=== PATIENT | male | born 1980 | race Caucasian/White ===

== ENCOUNTER → 2022-12-05 08:47 | Outpatient (BNVA) | payer MEDICARE, SELFPAY | PROVIDERS: Visit Provider Student in an Organized Health Care Education/Training Program | DX: L40.50 Arthropathic psoriasis, unspecified (principal) | CPT/HCPCS: 99202 ==

== ENCOUNTER 2022-12-05 10:09 | Outpatient (REF) | payer BC, SELFPAY ==
[2022-12-05 10:45] LABS: MANUAL DIFF FLAG NO
[2022-12-05 10:55] LABS: Basophils Absolute Auto 0.1 X10*3/uL (0.0-0.2); Basophils Percent Auto 1.2 % (0-2); Eosinophils Absolute Auto 0.1 X10*3/uL (0.0-0.4); Eosinophils Percent Auto 2.2 % (0-4); Hematocrit 45.4 % (42.0-52.0); Hemoglobin 15.6 g/dl (14.0-18.0); Imm Gran Abs Auto 0.02 X10*3/uL (0.00-0.03); Imm Gran Pct Auto 0.3 % (0.0-0.4); Lymphocytes Absolute Auto 2.6 X10*3/uL (1.2-4.9); Lymphocytes Percent Auto 40.6 % (20-40); Mean Corpuscular HGB Conc 34.4 g/dl (31.0-36.0); Mean Corpuscular Hemoglobin 29.4 pg (27.0-33.0); Mean Corpuscular Volume 85.7 fL (80.0-98.0); Mean Platelet Volume 8.9 fL (9.4-12.4); Monocytes Absolute Auto 0.6 X10*3/uL (0.1-1.2); Monocytes Percent Auto 8.9 % (2-11); Neutrophils Percent Auto 46.8 % (45-73); Platelet Count 262 X10*3/uL (160-400); Red Cell Distribution Width 12.5 % (11.0-16.0); White Blood Count 6.4 X10*3/uL (4.8-10.8)
[2022-12-05 11:15] LABS: Alanine Aminotransferase 35 U/L (0-40); Albumin Level 4.3 g/dL (3.5-5.0); Alkaline Phosphatase 49 U/L (39-117); Anion Gap 11 (12-20); Aspartate Amino Transferase 24 U/L (5-37); Bilirubin Total 0.6 mg/dL (0.0-1.0); Blood Urea Nitrogen 17 mg/dL (9-16); C Reactive Protein 0.26 mg/dL (< or = 0.50); Calcium 9.8 mg/dL (8.4-10.2); Carbon Dioxide 30 mmol/L (22-29); Chloride 102 mmol/L (96-108); Estimated Glomerular Filt Rate > 60; Glucose Random 97 mg/dL (60-115); Potassium 3.7 mmol/L (3.3-5.1); Sodium 139 mmol/L (135-145)
[2022-12-05 11:43] LABS: Erythrocyte Sedimentation Rate 9 MM/HR (0-15)
== END 2022-12-05 10:10 | disposition home or self-care (01) ==
LOC: HO.10HDL 10:09
PROVIDERS: Visit Provider Student in an Organized Health Care Education/Training Program
DX: Z51.81 Encounter for therapeutic drug level monitoring (principal); Z79.631 Long term (current) use of antimetabolite agent
CPT/HCPCS: 36415; 80053; 85025; 85652; 86140

== ENCOUNTER 2023-05-15 14:08 | Outpatient (AMB) | payer MEDICARE, SELFPAY ==
[2023-05-15 14:11] VITALS: BP 116/78; PULSE 70; TEMP 36.4; O2SAT 96; BMI 30.9
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
== END 2023-05-15 15:04 | disposition home or self-care (01) ==
PROVIDERS: PCP Nurse Practitioner Family; Visit Provider Student in an Organized Health Care Education/Training Program
DX: L40.50 Arthropathic psoriasis, unspecified (principal); L40.9 Psoriasis, unspecified; Z79.631 Long term (current) use of antimetabolite agent
CPT/HCPCS: 99214

== ENCOUNTER 2023-05-15 14:08 | Outpatient (REF) | payer BC, SELFPAY ==
[2023-05-15 15:11] LABS: MANUAL DIFF FLAG NO
[2023-05-15 15:44] LABS: Basophils Absolute Auto 0.1 X10*3/uL (0.0-0.2); Basophils Percent Auto 1.4 % (0-2); Eosinophils Absolute Auto 0.3 X10*3/uL (0.0-0.4); Eosinophils Percent Auto 3.8 % (0-4); Hematocrit 46.1 % (42.0-52.0); Hemoglobin 15.7 g/dl (14.0-18.0); Imm Gran Abs Auto 0.02 X10*3/uL (0.00-0.03); Imm Gran Pct Auto 0.3 % (0.0-0.4); Lymphocytes Absolute Auto 2.7 X10*3/uL (1.2-4.9); Lymphocytes Percent Auto 33.8 % (20-40); Mean Corpuscular HGB Conc 34.1 g/dl (31.0-36.0); Mean Corpuscular Hemoglobin 29.5 pg (27.0-33.0); Mean Corpuscular Volume 86.7 fL (80.0-98.0); Mean Platelet Volume 9.3 fL (9.4-12.4); Monocytes Absolute Auto 0.8 X10*3/uL (0.1-1.2); Monocytes Percent Auto 9.6 % (2-11); Neutrophils Percent Auto 51.1 % (45-73); Platelet Count 274 X10*3/uL (160-400); Red Blood Count 5.32 X10*6/uL (4.60-5.80); White Blood Count 7.8 X10*3/uL (4.8-10.8)
[2023-05-15 16:22] LABS: Alanine Aminotransferase 32 U/L (0-40); Albumin Level 4.3 g/dL (3.5-5.0); Alkaline Phosphatase 50 U/L (39-117); Anion Gap 14 (12-20); Aspartate Amino Transferase 21 U/L (5-37); Bilirubin Total 0.4 mg/dL (0.0-1.0); Blood Urea Nitrogen 18 mg/dL (9-16); C Reactive Protein 0.33 mg/dL (< or = 0.50); Calcium 9.8 mg/dL (8.4-10.2); Carbon Dioxide 28 mmol/L (22-29); Chloride 101 mmol/L (96-108); Estimated Glomerular Filt Rate > 60; Glucose Random 93 mg/dL (60-115); Potassium 3.6 mmol/L (3.3-5.1); Sodium 139 mmol/L (135-145); Total Protein 7.6 g/dL (6.5-8.0)
[2023-05-15 16:25] LABS: Erythrocyte Sedimentation Rate 8 MM/HR (0-15)
[2023-05-16 04:36] LABS: HBS Num1 236.22 mIU/mL (0-7.99); HBsAGNum1 0.29 S/CO (0.00-0.99); Hepatitis A Antibody IgM 0.18 Index (0-0.79); Hepatitis B Core Antibody Nonreactive (Nonreactive); Hepatitis B Surface Antigen Negative (Negative); ~HepC Num1 0.07 S/CO (0.00-0.79); ~Hepatitis A Antibody IgM Nonreactive (Nonreactive); ~Hepatitis B Surface Antibody REACTIVE (Nonreactive); ~Hepatitis C Antibody Nonreactive (Nonreactive)
[2023-05-28 07:22] LABS: TS Negative Control Passed; TS Panel A 1; TS Panel B 1; TS Positive Control Passed; TSpotTB Negative (NEGATIVE)
== END 2023-05-15 14:09 | disposition home or self-care (01) ==
LOC: HO.LAB 14:08
PROVIDERS: PCP Nurse Practitioner Family; Visit Provider Student in an Organized Health Care Education/Training Program
DX: Z11.7 Encounter for testing for latent tuberculosis infection (principal); Z11.59 Encounter for screening for other viral diseases; Z72.89 Other problems related to lifestyle; L40.50 Arthropathic psoriasis, unspecified; Z79.631 Long term (current) use of antimetabolite agent
CPT/HCPCS: 36415; 80053; 85025; 85652; 86140; 86481; 86704; 86706; 86709; 86803; 87340; 99212

== ENCOUNTER 2023-08-14 08:21 | Outpatient (REF) | payer BC, SELFPAY ==
[2023-08-14 08:44] LABS: MANUAL DIFF FLAG NO
[2023-08-14 08:56] LABS: Basophils Absolute Auto 0.1 X10*3/uL (0.0-0.2); Basophils Percent Auto 1.1 % (0-2); Eosinophils Absolute Auto 0.2 X10*3/uL (0.0-0.4); Eosinophils Percent Auto 2.4 % (0-4); Hematocrit 45.8 % (42.0-52.0); Hemoglobin 15.5 g/dl (14.0-18.0); Imm Gran Abs Auto 0.01 X10*3/uL (0.00-0.03); Imm Gran Pct Auto 0.2 % (0.0-0.4); Lymphocytes Absolute Auto 2.2 X10*3/uL (1.2-4.9); Mean Corpuscular HGB Conc 33.8 g/dl (31.0-36.0); Mean Corpuscular Hemoglobin 29.7 pg (27.0-33.0); Mean Corpuscular Volume 87.7 fL (80.0-98.0); Monocytes Absolute Auto 0.5 X10*3/uL (0.1-1.2); Monocytes Percent Auto 7.7 % (2-11); Neutrophils Absolute Auto 3.4 x10*3/uL (2.0-8.3); Neutrophils Percent Auto 53.6 % (45-73); Platelet Count 223 X10*3/uL (160-400); Red Blood Count 5.22 X10*6/uL (4.60-5.80); White Blood Count 6.3 X10*3/uL (4.8-10.8)
[2023-08-14 09:28] LABS: Alanine Aminotransferase 31 U/L (0-40); Albumin Level 4.2 g/dL (3.5-5.0); Alkaline Phosphatase 50 U/L (39-117); Anion Gap 12 (12-20); Aspartate Amino Transferase 20 U/L (5-37); Bilirubin Total 0.5 mg/dL (0.0-1.0); Blood Urea Nitrogen 12 mg/dL (9-16); C Reactive Protein 0.33 mg/dL (< or = 0.50); Calcium 9.7 mg/dL (8.4-10.2); Carbon Dioxide 31 mmol/L (22-29); Chloride 105 mmol/L (96-108); Estimated Glomerular Filt Rate > 60; Glucose Random 121 mg/dL (60-115); Potassium 3.7 mmol/L (3.3-5.1); Sodium 144 mmol/L (135-145); Total Protein 7.4 g/dL (6.5-8.0)
[2023-08-14 09:35] LABS: Erythrocyte Sedimentation Rate 6 MM/HR (0-15)
== END 2023-08-14 08:22 | disposition home or self-care (01) ==
LOC: HO.LAB 08:21
PROVIDERS: PCP Nurse Practitioner Family; Visit Provider Student in an Organized Health Care Education/Training Program
DX: L40.50 Arthropathic psoriasis, unspecified (principal); L40.9 Psoriasis, unspecified; Z79.631 Long term (current) use of antimetabolite agent
CPT/HCPCS: 36415; 80053; 85025; 85652; 86140

== ENCOUNTER 2023-08-14 08:48 | Outpatient (AMB) | payer BC, SELFPAY ==
--- NOTE | 2023-08-14 08:56 | A.OFFVIS_ITS ---
Intake Vital Signs 08/14/23 09:01 Height 5 ft 10 in Weight 215 lb 9.793 oz BMI 30.9 BP 104/70 Blood Pressure Location Rt brachial Position Sitting Pulse 68 Pulse Source Pulse Oximeter Temp 97.6 F Temp Source Skin Pulse Oximetry (%) 97 Oxygen Delivery Method Room Air Intake Visit Reasons: PSA Intake Note: Patient presents today to follow up on PsA and to discuss switching from Enbrel to Humira. Sap Consultant Required: No Accompanied by: Self / Same As Patient Allergies latex Adverse Reaction (Unknown, Verified 08/14/23 08:56) Rash Medication List - Last Reconciled 08/14/23 by Briseyda Jacobo MD amoxicillin 2,000 mg orally before dental work; Enbrel (etanercept) 50 mg subcut QWEEK NS folic acid 1 mg PO DAILY hydrochlorothiazide 25 mg PO DAILY methotrexate sodium 15 mg (6 x 2.5 mg) PO QWEEK metoprolol succinate ER 25 mg PO DAILY simvastatin 20 mg PO BEDTIME HPI HPI Comments History of Present Illness Details This is a 43-year-old male with psoriasis and psoriatic arthritis presents for follow-up. States that he was using topical steroid cream regularly for 2 weeks for the psoriasis patches on his hands, which did help but the rash came back as soon as he stopped. He states that he was recently doing [place] shopping and was on his feet for long day and is now having back pain, left knee pain and mild left index pain and stiffness. He is on methotrexate 15 mg weekly, folic acid and Enbrel weekly Initial history: This is a 42-year-old male with a past medical history of psoriasis and psoriatic arthritis who presents as a new patient. 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 Patient stated that he was diagnosed with p soriasis since he was a kid. He was diagnosed with psoriatic arthritis in 2001. He was on multiple medicines including methotrexate, sulfasalazine, multiple doses and regimens of NSAIDs. Then he was planning on having children and he was switched to Enbrel in 2003. Per patient Enbrel was working very well for many years for his psoriasis and psoriatic arthritis until 2021 when his insurance was unable to cover his Enbrel anymore. Patient stalked of on Enbrel in 2021 and was using it every other week. When using it every other week he started developing worsening inflammatory arthritis and he was started on methotrexate 50 mg once weekly by Dr. Roche with improvement of his joint inflammation. Patient now has a new insurance and is using the patient assistance program. Enbrel was authorized by his manufacturing teacher and he just started taking it once weekly 2 weeks ago. States that he is doing well overall except for mild pain of his left index flexor and left little toe. Minimal psoriatic patches on his fingers. Denies history of uveitis. Never had colonoscopy. No known family history of autoimmune rheumatic disease. [facility] Medical History Psoriatic arthritis Primary fibromyalgia syndrome Inflammatory spondylopathy Psoriasis Hypertriglyceridemia Essential hypertension Surgical History Hx of LASIK Family History Mother Hypertension Father Hypertension Neurological disorder Social History Alcohol intake: current Alcohol intake frequency: holidays/special occasions only Alcohol type: beer Patient Tobacco Use Status: Never used Tobacco Current occupational status: employed Current occupation: [employer] [place] Reports back pain and Reports arthralgias Skin/Breast Reports rash Physical Exam Vital Signs: Last Vital Signs Temp 97.6 F 08/14/23 09:01 Pulse 68 08/14/23 09:01 BP 104/70 08/14/23 09:01 Pulse Ox 97 08/14/23 09:01 Oxygen Delivery Method Room Air 08/14/23 09:01 BMI result Body Mass Index 30.9 Const General: cooperative, healthy appearing and comfortable Nutritional Appearance: overweight Orientation/consciousness: patient oriented x3 Limitations: no limitations HEENT Head: Yes normocephalic and Yes atraumatic Mouth: moist mucous membranes Resp Effort & Inspection: normal respiratory effort and able to speak in complete sentences Auscultation: clear to auscultation bilaterally Cardio Rate: regular rate Rhythm: regular rhythm GI Inspection: No distended Palpation (GI): Soft to palpation and nontender Skin Other: Psoriasis patches on left ring finger Neuro General: patient oriented x3 Extrem Other: No active synovitis today Nail pitting Negative Jose's test bilaterally Negative straight leg raise test Assessment & Plan Assessment & Plan (1) Psoriatic arthritis: Comment: dx 2002 MTX,SSZ, multiple doses and regimens of NSAIDs which were partially effective. Then patient wanted to have children. Everything was DC & he was switched to Enbrel Enbrel since 2003 effective. cut back to every other since 2021 due to insurance issues, with resultant inflammatory arthritis flare MTX added in 2021 with better control of inflammatory arthritis. Enbrel restarted once weekly in 11/23 Code(s): L40.50 - Arthropathic psoriasis, unspecified Plan: This is a 43-year-old male with a past medical history of psoriasis and psoriatic arthritis who presents for follow-up. On Enbrel weekly and methotrexate 15 mg once weekly Psoriatic arthritis is well controlled overall however he is having few psoriasis patches. Patches improve with topical steroid cream however they recur as soon as he stops using it. We discussed switching Enbrel to Humira. Patient however just received a new with 3 month shipment of Enbrel. Will re-evaluate next visit and consider switching to Humira Continue methotrexate 15 mg weekly folic acid 1 mg daily Labs before next visit in 10 weeks (2) Psoriasis: Code(s): L40.9 - Psoriasis, unspecified Plan: As above (3) shelter methotrexate user: Code(s): Z79.631 - terminal operations supervisor (current) use of antimetabolite agent Plan: Monitor safety labs for methotrexate (4) Immunization counseling: Code(s): Z71.85 - Encounter for immunization safety counseling Plan: Patient received the flu vaccine for this season and new COVID booster Plan I spent 27 minutes reviewing patient's chart, evaluating patient, ordering diagnostic workup, counseling patient and documenting in the chart Orders: Orders C Reactive Protein 3 Months Z79.631 - terminal operations supervisor (current) use of antimetabolite agent Complete Blood Count Auto Diff 3 Months Z79.631 - terminal operations supervisor (current) use of antimetabolite agent Comprehensive Met. Panel 3 Months Z79.631 - shelter (current) use of antimetabolite agent Erythrocyte Sedimentation Rate 3 Months Z79.631 - shelter (current) use of antimetabolite agent Medications: Refilled methotrexate sodium 15 mg (6 x 2.5 mg) PO QWEEK 72 tabs 3RF folic acid 1 mg PO DAILY 90 tabs 1RF Coding Level of Care Code Est Pt Level 4 (67214) Diagnoses Psoriatic arthritis L40.50 Psoriasis L40.9 terminal operations supervisor methotrexate user Z79.631 Immunization counseling Z71.85
[2023-08-14 09:01] VITALS: BP 104/70; PULSE 68; TEMP 36.4; O2SAT 97; BMI 30.9
== END 2023-08-14 09:27 | disposition home or self-care (01) ==
PROVIDERS: PCP Nurse Practitioner Family; Visit Provider Student in an Organized Health Care Education/Training Program
DX: L40.50 Arthropathic psoriasis, unspecified (principal); L40.9 Psoriasis, unspecified; Z79.631 Long term (current) use of antimetabolite agent; Z71.85 Encounter for immunization safety counseling
CPT/HCPCS: 99214

== ENCOUNTER 2023-10-24 10:43 | Outpatient (REF) | payer BC, SELFPAY ==
[2023-10-24 11:07] LABS: MANUAL DIFF FLAG NO
[2023-10-24 11:58] LABS: Basophils Absolute Auto 0.1 X10*3/uL (0.0-0.2); Basophils Percent Auto 1.1 % (0-2); Eosinophils Absolute Auto 0.1 X10*3/uL (0.0-0.4); Eosinophils Percent Auto 2.1 % (0-4); Hematocrit 46.4 % (42.0-52.0); Hemoglobin 15.9 g/dl (14.0-18.0); Imm Gran Abs Auto 0.02 X10*3/uL (0.00-0.03); Imm Gran Pct Auto 0.3 % (0.0-0.4); Lymphocytes Absolute Auto 2.4 X10*3/uL (1.2-4.9); Lymphocytes Percent Auto 38.4 % (20-40); Mean Corpuscular HGB Conc 34.3 g/dl (31.0-36.0); Mean Corpuscular Hemoglobin 29.7 pg (27.0-33.0); Mean Corpuscular Volume 86.6 fL (80.0-98.0); Mean Platelet Volume 9.3 fL (9.4-12.4); Monocytes Absolute Auto 0.5 X10*3/uL (0.1-1.2); Monocytes Percent Auto 8.6 % (2-11); Neutrophils Absolute Auto 3.1 x10*3/uL (2.0-8.3); Neutrophils Percent Auto 49.5 % (45-73); Platelet Count 272 X10*3/uL (160-400); Red Blood Count 5.36 X10*6/uL (4.60-5.80); Red Cell Distribution Width 13.1 % (11.0-16.0); White Blood Count 6.3 X10*3/uL (4.8-10.8)
[2023-10-24 12:29] LABS: Alanine Aminotransferase 39 U/L (0-40); Albumin Level 4.3 g/dL (3.5-5.0); Alkaline Phosphatase 53 U/L (39-117); Anion Gap 13 (12-20); Aspartate Amino Transferase 26 U/L (5-37); Bilirubin Total 0.5 mg/dL (0.0-1.0); Blood Urea Nitrogen 15 mg/dL (9-16); C Reactive Protein 0.33 mg/dL (< or = 0.50); Calcium 9.6 mg/dL (8.4-10.2); Carbon Dioxide 30 mmol/L (22-29); Chloride 103 mmol/L (96-108); Estimated Glomerular Filt Rate > 60; Glucose Random 92 mg/dL (60-115); Potassium 3.9 mmol/L (3.3-5.1); Sodium 142 mmol/L (135-145); Total Protein 7.7 g/dL (6.5-8.0)
[2023-10-24 12:47] LABS: Erythrocyte Sedimentation Rate 7 MM/HR (0-15)
== END 2023-10-24 10:44 | disposition home or self-care (01) ==
LOC: HO.LAB 10:43
PROVIDERS: PCP Nurse Practitioner Family; Visit Provider Student in an Organized Health Care Education/Training Program
DX: Z51.81 Encounter for therapeutic drug level monitoring (principal); Z79.631 Long term (current) use of antimetabolite agent
CPT/HCPCS: 36415; 80053; 85025; 85652; 86140

== ENCOUNTER 2023-10-25 09:44 | Outpatient (AMB) | payer BC, SELFPAY ==
[2023-10-25 09:48] VITALS: BP 128/74; PULSE 59; TEMP 36.1; O2SAT 97; BMI 31.0
--- NOTE | 2023-10-25 09:48 | MHC.OFFVIS ---
Intake Vital Signs 10/25/23 09:48 Height 5 ft 10 in Weight 216 lb 0.848 oz BMI 31.0 BP 128/74 Blood Pressure Location Rt brachial Position Sitting Pulse 59 Pulse Source Pulse Oximeter Temp 96.9 F Temp Source Skin Pulse Oximetry (%) 97 Oxygen Delivery Method Room Air Intake Visit Reasons: PSA Intake Note: Patient last seen 08/14/23 presents today for follow up and test results. Stem Crusher Required: No Accompanied by: Self / Same As Patient Allergies latex Adverse Reaction (Unknown, Verified 10/25/23 09:50) Rash Medication List - Last Reconciled 10/25/23 by Briseyda Jacobo MD amoxicillin 2,000 mg orally before dental work; folic acid 1 mg PO DAILY hydrochlorothiazide 25 mg PO DAILY methotrexate sodium 15 mg (6 x 2.5 mg) PO QWEEK metoprolol succinate ER 25 mg PO DAILY simvastatin 20 mg PO BEDTIME HPI HPI Comments History of Present Illness Details This is a 43-year-old male with psoriasis and psoriatic arthritis presents for follow-up. He is on methotrexate 15 mg weekly, folic acid and Enbrel weekly. Doing about the same overall. Continues to have psoriasis patches on his fingers genital region, penile shaft and scrotum. States that recently has been having some stiffness of his left index PIP and some back pain after a long day of walking at [place]. Initial history: This is a 42-year-old male with a past medical history of psoriasis and psoriatic arthritis who presents as a new patient. His previous primary care md left the practice. Patient stated that he was diagnosed with psoriasis since he was a kid. He was diagnosed with psoriatic arthritis in 2001. He was on multiple medicines including methotrexate, sulfasalazine, multiple doses and regimens of NSAIDs. Then he was planning on having children and he was switched to Enbrel in 2003. Per patient Enbrel was working very well for many years for his psoriasis and psoriatic arthritis until 2021 when his insurance was unable to cover his Enbrel anymore. Patient stalked of on Enbrel in 2021 and was using it every other week. When using it every other week he started developing worsening inflammatory arthritis and he was started on methotrexate 50 mg once weekly by Dr. Roche with improvement of his joint inflammation. Patient now has a new insurance and is using the patient assistance program. Enbrel was authorized by his principal technical writer and he just started taking it once weekly 2 weeks ago. States that he is doing well overall except for mild pain of his left index flexor and left little toe. Minimal psoriatic patches on his fingers. Denies history of uveitis. Never had colonoscopy. No known family history of autoimmune rheumatic disease. [facility] Medical History Psoriatic arthritis Primary fibromyalgia syndrome Inflammatory spondylopathy Psoriasis Hypertriglyceridemia Essential hypertension Surgical History Hx of LASIK Family History Mother Hypertension Father Hypertension Neurological disorder Social History Alcohol intake: current Alcohol intake frequency: holidays/special occasions only Alcohol type: beer Patient Tobacco Use Status: Never used Tobacco Current occupational status: employed Current occupation: [employer] Systems [place] Reports back pain and Reports arthralgias Skin/Breast Reports rash Physical Exam Vital Signs: Last Vital Signs Temp 96.9 F 10/25/23 09:48 Pulse 59 10/25/23 09:48 BP 128/74 10/25/23 09:48 Pulse Ox 97 10/25/23 09:48 Oxygen Delivery Method Room Air 10/25/23 09:48 BMI result Body Mass Index 31.0 Const General: cooperative, healthy appearing and comfortable Nutritional Appearance: overweight Orientation/consciousness: patient oriented x3 Limitations: no limitations HEENT Head: Yes normocephalic and Yes atraumatic Mouth: moist mucous membranes Resp Effort & Inspection: normal respiratory effort and able to speak in complete sentences Auscultation: clear to auscultation bilaterally Cardio Rate: regular rate Rhythm: regular rhythm GI Inspection: No distended Palpation (GI): Soft to palpation and nontender Skin Other: Psoriasis patches on left index, left thumb. Neuro General: patient oriented x3 Extrem Other: No active synovitis today Nail pitting Negative Jose's test bilaterally Negative straight leg raise test Assessment & Plan Assessment & Plan (1) Psoriatic arthritis: Comment: dx 2001 MTX,SSZ, multiple doses and regimens of NSAIDs which were partially effective. Then patient wanted to have children. Everything was DC & he was switched to Enbrel Enbrel since 2003 effective. cut back to every other since 2021 due to insurance issues, with resultant inflammatory arthritis flare MTX added in 2021 with better control of inflammatory arthritis. Enbrel restarted once weekly in 11/23 Code(s): L40.50 - Arthropathic psoriasis, unspecified Plan: This is a 43-year-old male with a past medical history of psoriasis and psoriatic arthritis who presents for follow-up. On Enbrel weekly and methotrexate 15 mg once weekly Psoriatic arthritis is well controlled. He is having some joint pain that is likely mechanical and degenerative in nature. Patient however continues to have active psoriasis despite methotrexate, Enbrel and regular use of topical steroid creams. Discussed switching to adalimumab. Patient agreed to proceed Continue methotrexate 15 mg weekly folic acid 1 mg daily Labs before next visit in 4 months (2) Psoriasis: Code(s): L40.9 - Psoriasis, unspecified Plan: As mentioned above. Psoriasis is not well controlled on Enbrel, 15 mg of methotrexate as well as regular use of topical creams. Discussed switching DMARDs from Enbrel to Humira. Patient agreed to proceed. Will start prior authorization for Humira (3) care home methotrexate user: Code(s): Z79.631 - intermodal customer service (current) use of antimetabolite agent Plan: Monitor safety labs for methotrexate (4) Immunization counseling: Code(s): Z71.85 - Encounter for immunization safety counseling Plan: Patient received the flu vaccine for this season and new COVID booster Plan I spent 27 minutes reviewing patient's chart, evaluating patient, ordering diagnostic workup, counseling patient and documenting in the chart Orders: Orders Complete Blood Count Auto Diff 4 Months L40.50 - Arthropathic psoriasis, unspecified, Z79.631 - care home (current) use of antimetabolite agent Comprehensive Met. Panel 4 Months L40.50 - Arthropathic psoriasis, unspecified, Z79.631 - care home (current) use of antimetabolite agent C Reactive Protein 4 Months L40.50 - Arthropathic psoriasis, unspecified, Z79.631 - care home (current) use of antimetabolite agent Erythrocyte Sedimentation Rate 4 Months L40.50 - Arthropathic psoriasis, unspecified, Z79.631 - care home (current) use of antimetabolite agent Coding Level of Care Code Est Pt Level 4 (01733) Diagnoses Psoriatic arthritis L40.50 Psoriasis L40.9 intermodal customer service methotrexate user Z79.631 Immunization counseling Z71.85
== END 2023-10-25 10:07 | disposition home or self-care (01) ==
PROVIDERS: PCP Nurse Practitioner Family; Visit Provider Student in an Organized Health Care Education/Training Program
DX: L40.50 Arthropathic psoriasis, unspecified (principal); L40.9 Psoriasis, unspecified; Z79.631 Long term (current) use of antimetabolite agent; Z71.85 Encounter for immunization safety counseling
CPT/HCPCS: 99214

== ENCOUNTER → 2023-10-25 09:44 | Outpatient (BNVA) | payer BC, SELFPAY | PROVIDERS: PCP Nurse Practitioner Family; Visit Provider Student in an Organized Health Care Education/Training Program ==

== ENCOUNTER 2024-03-11 14:07 | Outpatient (REF) | payer BC, SELFPAY ==
[2024-03-11 14:20] LABS: MANUAL DIFF FLAG NO
[2024-03-11 14:47] LABS: Basophils Absolute Auto 0.1 X10*3/uL (0.0-0.2); Basophils Percent Auto 1.6 % (0-2); Eosinophils Absolute Auto 0.2 X10*3/uL (0.0-0.4); Eosinophils Percent Auto 3.5 % (0-4); Hematocrit 45.4 % (42.0-52.0); Hemoglobin 15.6 g/dl (14.0-18.0); Imm Gran Abs Auto 0.01 X10*3/uL (0.00-0.03); Imm Gran Pct Auto 0.2 % (0.0-0.4); Lymphocytes Absolute Auto 2.4 X10*3/uL (1.2-4.9); Lymphocytes Percent Auto 37.1 % (20-40); Mean Corpuscular HGB Conc 34.4 g/dl (31.0-36.0); Mean Corpuscular Hemoglobin 29.8 pg (27.0-33.0); Mean Corpuscular Volume 86.6 fL (80.0-98.0); Mean Platelet Volume 9.5 fL (9.4-12.4); Monocytes Absolute Auto 0.5 X10*3/uL (0.1-1.2); Monocytes Percent Auto 8.4 % (2-11); Neutrophils Absolute Auto 3.1 x10*3/uL (2.0-8.3); Neutrophils Percent Auto 49.2 % (45-73); Platelet Count 246 X10*3/uL (160-400); Red Blood Count 5.24 X10*6/uL (4.60-5.80); Red Cell Distribution Width 13.1 % (11.0-16.0); White Blood Count 6.3 X10*3/uL (4.8-10.8)
[2024-03-11 15:25] LABS: Alanine Aminotransferase 29 U/L (0-40); Albumin Level 4.3 g/dL (3.5-5.0); Alkaline Phosphatase 59 U/L (39-117); Anion Gap 13 (12-20); Aspartate Amino Transferase 19 U/L (5-37); Bilirubin Total 0.5 mg/dL (0.0-1.0); Blood Urea Nitrogen 12 mg/dL (9-16); C Reactive Protein 0.73 mg/dL (< or = 0.50); Calcium 9.9 mg/dL (8.4-10.2); Carbon Dioxide 30 mmol/L (22-29); Chloride 105 mmol/L (96-108); Erythrocyte Sedimentation Rate 10 MM/HR (0-15); Estimated Glomerular Filt Rate > 60; Glucose Random 88 mg/dL (60-115); Sodium 144 mmol/L (135-145); Total Protein 7.6 g/dL (6.5-8.0)
== END 2024-03-11 14:08 | disposition home or self-care (01) ==
LOC: HO.LAB 14:07
PROVIDERS: PCP Nurse Practitioner Family; Visit Provider Student in an Organized Health Care Education/Training Program
DX: L40.50 Arthropathic psoriasis, unspecified (principal); Z79.631 Long term (current) use of antimetabolite agent
CPT/HCPCS: 36415; 80053; 85025; 85652; 86140

== ENCOUNTER 2024-03-11 14:21 | Outpatient (AMB) | payer BC, SELFPAY ==
--- NOTE | 2024-03-11 14:28 | A.OFFVIS_ITS ---
Vital Signs 03/11/24 14:33 Height 5 ft 10 in Weight 224 lb 10.417 oz BMI 32.2 BP 122/80 Blood Pressure Location Rt brachial Position Sitting Pulse 76 Pulse Source Pulse Oximeter Pulse Oximetry (%) 98 Oxygen Delivery Method Room Air Intake Visit Reasons: PsA/CM Intake Note: Patient presents for PsA. Allergies latex Adverse Reaction (Unknown, Verified 03/11/24 14:31) Rash Medication List - Last Reconciled 03/11/24 by Briseyda Jacobo MD amoxicillin 2,000 mg (4 x 500 mg) PO ONCE PRN folic acid 1 mg PO DAILY Humira(CF) Pen (adalimumab) inject one - 40 mg/0.4 mL pen every 2 weeks subcut NS hydrochlorothiazide 25 mg PO DAILY methotrexate sodium 15 mg (6 x 2.5 mg) PO QWEEK simvastatin 20 mg PO BEDTIME HPI Comments Details: This is a 43-year-old male with psoriasis and psoriatic arthritis presents for follow-up. He is on methotrexate 15 mg weekly, folic acid 1 mg daily. Last visit we switched his Enbrel to Humira. He states that he continues to have intermittent joint pain usually left knee, left big toe, usually worse with activity. States that the psoriasis patch on his right knee has significantly improved but continues to have pain psoriasis patches on his penile shaft and scrotum. Ulcers on his hands and fingers are much improved. He has noticed a lump on the left axillary area. Initial history: This is a 42-year-old male with a past medical history of psoriasis and psoriatic arthritis who presents as a new patient. His previous window framer left the practice. Patient stated that he was diagnosed with psoriasis since he was a kid. He was diagnosed with psoriatic arthritis in 2001. He was on multiple medicines including methotrexate, sulfasalazine, multiple doses and regimens of NSAIDs. Then he was planning on having children and he was switched to Enbrel in 2003. Per patient Enbrel was working very well for many years for his psoriasis and psoriatic arthritis until 2021 when his insurance was unable to cover his Enbrel anymore. Patient stalked of on Enbrel in 2021 and was using it every other week. When using it every other week he started developing worsening inflammatory arthritis and he was started on methotrexate 50 mg once weekly by Dr. Roche with improvement of his joint inflammation. Patient now has a new insurance and is using the patient assistance program. Enbrel was authorized by his account manager b2b and he just started taking it once weekly 2 weeks ago. States that he is doing well overall except for mild pain of his left index flexor and left little toe. Minimal psoriatic patches on his fingers. Denies history of uveitis. Never had colonoscopy. No known family history of autoimmune rheumatic disease. [facility] Medical History Psoriatic arthritis Primary fibromyalgia syndrome Inflammatory spondylopathy Psoriasis Hypertriglyceridemia Essential hypertension Surgical History Hx of LASIK Family History Mother Hypertension Father Hypertension Neurological disorder Social History Alcohol intake: current Alcohol intake frequency: holidays/special occasions only Alcohol type: beer Patient Tobacco Use Status: Never used Tobacco Current occupational status: employed Current occupation: [employer] Review of Systems Musc Reports arthralgias Skin/Breast Reports rash Physical Exam Vital Signs: Last Vital Signs Pulse 76 03/11/24 14:33 BP 122/80 03/11/24 14:33 Pulse Ox 98 03/11/24 14:33 Oxygen Delivery Method Room Air 03/11/24 14:33 BMI result Body Mass Index 32.2 Const General: cooperative, healthy appearing and comfortable Nutritional Appearance: overweight Orientation/consciousness: patient oriented x3 Limitations: no limitations HEENT Head: Yes normocephalic and Yes atraumatic Mouth: moist mucous membranes Resp Effort & Inspection: normal respiratory effort and able to speak in complete sentences Auscultation: clear to auscultation bilaterally Cardio Rate: regular rate Rhythm: regular rhythm GI Inspection: No distended Palpation (GI): Soft to palpation and nontender Skin Other: Very faint psoriasis patches on penile shaft and very subtle patches on scrotum Pea sized lump on the left axillary area, likely hidradenitis suppurativa Neuro General: patient oriented x3 Extrem Other: No active synovitis today Left knee pain with full flexion Nail pitting Negative Jose's test bilaterally Negative straight leg raise test Assessment & Plan Assessment & Plan (1) Psoriatic arthritis: Comment: dx 2002 MTX,SSZ, multiple doses and regimens of NSAIDs which were partially effective. Then patient wanted to have children. Everything was DC & he was switched to Enbrel Enbrel since 2003 effective. cut back to every other since 2021 due to insurance issues, with resultant inflammatory arthritis flare MTX added in 2021 with better control of inflammatory arthritis. Enbrel restarted once weekly in 11/23 DC 01/2024 d.t. ongoing psoriasis Humira 01/2024 Code(s): L40.50 - Arthropathic psoriasis, unspecified Category: Medical Plan: This is a 43-year-old male with a past medical history of psoriasis and psoriatic arthritis who presents for follow-up. Last visit Enbrel was DC and Humira was started. There is mild improvement in his psoriasis. There is no active synovitis Continue Humira 40 mg every other week Continue methotrexate 15 mg weekly plus folic acid 1 mg daily Labs in 3 months and in 6 months before next visit (2) Psoriasis: Code(s): L40.9 - Psoriasis, unspecified Category: Medical Plan: Slightly improved with Humira. Continues to have subtle patches on scrotum and penile shaft, psoriasis rashes on significantly improved Pea-sized lump left axillary area, likely hidradenitis suppurativa. Advised patient to use a non antiperspirant body spray. Once the area. 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
[2024-03-11 14:33] VITALS: BP 122/80; PULSE 76; O2SAT 98; BMI 32.2
== END 2024-03-11 15:28 | disposition home or self-care (01) ==
PROVIDERS: PCP Nurse Practitioner Family; Visit Provider Student in an Organized Health Care Education/Training Program
DX: L40.50 Arthropathic psoriasis, unspecified (principal); L40.9 Psoriasis, unspecified; Z79.631 Long term (current) use of antimetabolite agent
CPT/HCPCS: 99214

== ENCOUNTER 2024-09-11 14:56 | Outpatient (REF) | payer BC, SELFPAY ==
[2024-09-11 15:14] LABS: MANUAL DIFF FLAG NO
[2024-09-11 15:33] LABS: Basophils Absolute Auto 0.1 X10*3/uL (0.0-0.2); Basophils Percent Auto 1.3 % (0-2); Eosinophils Absolute Auto 0.2 X10*3/uL (0.0-0.4); Eosinophils Percent Auto 3.1 % (0-4); Hematocrit 43.4 % (42.0-52.0); Hemoglobin 15.2 g/dl (14.0-18.0); Imm Gran Abs Auto 0.02 X10*3/uL (0.00-0.03); Imm Gran Pct Auto 0.3 % (0.0-0.4); Lymphocytes Absolute Auto 2.8 X10*3/uL (1.2-4.9); Lymphocytes Percent Auto 40.7 % (20-40); Mean Corpuscular Hemoglobin 30.2 pg (27.0-33.0); Mean Corpuscular Volume 86.3 fL (80.0-98.0); Mean Platelet Volume 9.3 fL (9.4-12.4); Monocytes Absolute Auto 0.7 X10*3/uL (0.1-1.2); Monocytes Percent Auto 10.2 % (2-11); Neutrophils Percent Auto 44.4 % (45-73); Platelet Count 223 X10*3/uL (160-400); Red Blood Count 5.03 X10*6/uL (4.60-5.80); White Blood Count 6.8 X10*3/uL (4.8-10.8)
[2024-09-11 16:14] LABS: Alanine Aminotransferase 39 U/L (0-40); Alkaline Phosphatase 54 U/L (39-117); Anion Gap 10 (12-20); Aspartate Amino Transferase 26 U/L (5-37); Bilirubin Total 0.4 mg/dL (0.0-1.0); Blood Urea Nitrogen 16 mg/dL (9-16); C Reactive Protein 0.33 mg/dL (< or = 0.50); Calcium 9.5 mg/dL (8.4-10.2); Carbon Dioxide 28 mmol/L (22-29); Chloride 108 mmol/L (96-108); Estimated Glomerular Filt Rate > 60; Glucose Random 96 mg/dL (60-115); Potassium 4.2 mmol/L (3.3-5.1); Sodium 142 mmol/L (135-145); Total Protein 7.2 g/dL (6.5-8.0)
[2024-09-11 17:05] LABS: Erythrocyte Sedimentation Rate 7 MM/HR (0-15)
== END 2024-09-11 14:57 | disposition home or self-care (01) ==
LOC: HO.LAB 14:56
PROVIDERS: PCP Nurse Practitioner Family; Visit Provider Student in an Organized Health Care Education/Training Program
DX: Z79.631 Long term (current) use of antimetabolite agent (principal)
CPT/HCPCS: 36415; 80053; 85025; 85652; 86140

== ENCOUNTER 2024-09-11 15:19 | Outpatient (AMB) | payer BC, SELFPAY ==
[2024-09-11 15:32] VITALS: BP 110/80; PULSE 56; BMI 34.0
--- NOTE | 2024-09-11 15:32 | MHC.OFFVIS ---
Vital Signs 09/11/24 15:32 Height 5 ft 10 in Weight 236 lb 12.423 oz BMI 34.0 BP 110/80 Blood Pressure Location Rt brachial Position Sitting Pulse 56 Pulse Source Pulse Oximeter Intake Visit Reasons: PsA Intake Note: Patient last seen by Doctor Briseyda Jacobo on 03/11/24. Presents today for PsA follow up and test results. Outboard Motor Assembler Required: No Accompanied by: Self / Same As Patient Allergies latex Adverse Reaction (Unknown, Verified 09/11/24 15:39) Rash Medication List - Last Reconciled 09/11/24 by Briseyda Jacobo MD folic acid 1 mg PO DAILY Humira(CF) Pen (adalimumab) inject one - 40 mg/0.4 mL pen every 2 weeks subcut NS methotrexate sodium 15 mg (6 x 2.5 mg) PO QWEEK simvastatin 20 mg PO BEDTIME HPI Comments Details: This is a 44-year-old male with psoriasis and psoriatic arthritis presents for follow-up. He is on methotrexate 15 mg weekly, folic acid 1 mg daily and Humira 40 mg every other week. He states that he has been doing about the same overall. Doing well overall. Continues to have subtle psoriasis patches on his elbows, fingers. Denies any joint pain swelling or stiffness Initial history: This is a 42-year-old male with a past medical history of psoriasis and psoriatic arthritis who presents as a new patient. His previous nurse paralegal left the practice. Patient stated that he was diagnosed with psoriasis since he was a kid. He was diagnosed with psoriatic arthritis in 2001. He was on multiple medicines including methotrexate, sulfasalazine, multiple doses and regimens of NSAIDs. Then he was planning on having children and he was switched to Enbrel in 2003. Per patient Enbrel was working very well for many years for his psoriasis and psoriatic arthritis until 2021 when his insurance was unable to cover his Enbrel anymore. Patient stalked of on Enbrel in 2021 and was using it every other week. When using it every other week he started developing worsening inflammatory arthritis and he was started on methotrexate 50 mg once weekly by Dr. Roche with improvement of his joint inflammation. Patient now has a new insurance and is using the patient assistance program. Enbrel was authorized by his dry heat cabinet attendant and he just started taking it once weekly 2 weeks ago. States that he is doing well overall except for mild pain of his left index flexor and left little toe. Minimal psoriatic patches on his fingers. Denies history of uveitis. Never had colonoscopy. No known family history of autoimmune rheumatic disease. [facility] Medical History Psoriatic arthritis Primary fibromyalgia syndrome Inflammatory spondylopathy Psoriasis Hypertriglyceridemia Essential hypertension Surgical History Hx of LASIK Family History Mother Hypertension Father Hypertension Neurological disorder Social History Alcohol intake: current Alcohol intake frequency: holidays/special occasions only Alcohol type: beer Patient Tobacco Use Status: Never used Tobacco Current occupational status: employed Current occupation: [employer] Review of Systems Musc Reports arthralgias Skin/Breast Reports rash Physical Exam Vital Signs: Last Vital Signs Pulse 56 09/11/24 15:32 BP 110/80 09/11/24 15:32 BMI result Body Mass Index 34.0 Const General: cooperative, healthy appearing and comfortable Nutritional Appearance: overweight Orientation/consciousness: patient oriented x3 Limitations: no limitations HEENT Head: Yes normocephalic and Yes atraumatic Mouth: moist mucous membranes Resp Effort & Inspection: normal respiratory effort and able to speak in complete sentences Auscultation: clear to auscultation bilaterally Cardio Rate: regular rate Rhythm: regular rhythm GI Inspection: No distended Palpation (GI): Soft to palpation and nontender Skin Other: Very minimal psoriasis patches on his right 3rd finger, both elbows and inside his left ear Neuro General: patient oriented x3 Extrem Other: No active synovitis today Left knee pain with full flexion Nail pitting Negative Jose's test bilaterally Negative straight leg raise test bilaterally Carola test 10-14.5 cm Assessment & Plan Assessment & Plan (1) Psoriatic arthritis: Comment: dx 2001 MTX,SSZ, multiple doses and regimens of NSAIDs which were partially effective. Then patient wanted to have children. Everything was DC & he was switched to Enbrel Enbrel since 2003 effective. cut back to every other since 2021 due to insurance issues, with resultant inflammatory arthritis flare MTX added in 2021 with better control of inflammatory arthritis. Enbrel restarted once weekly in 11/23 DC 01/2024 d.t. ongoing psoriasis Humira 01/2024 effective for psoriatic arthritis, similar for psoriasis Code(s): L40.50 - Arthropathic psoriasis, unspecified Category: Medical Plan: This is a 44-year-old male with a past medical history of psoriasis and psoriatic arthritis who presents for follow-up. On methotrexate 15 mg weekly, folic acid 1 mg daily and Humira 40 mg every other week. Doing well overall, no active synovitis on exam, continues to have very subtle psoriasis patches. Symptoms overall well controlled Continue Humira 40 mg every other week Continue methotrexate 15 mg weekly plus folic acid 1 mg daily Labs in 3 months and in 6 months before next visit (2) Psoriasis: Code(s): L40.9 - Psoriasis, unspecified Category: Medical Plan: Slightly improved with Humira. 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 Panel 12/10/24 L40.50 - Arthropathic psoriasis, unspecified, Z79.631 - petroleum terminal plant operator (current) use of antimetabolite agent C Reactive Protein 12/10/24 L40.50 - Arthropathic psoriasis, unspecified, Z79.631 - petroleum terminal plant operator (current) use of antimetabolite agent Erythrocyte Sedimentation Rate 03/10/25 L40.50 - Arthropathic psoriasis, unspecified, Z79.631 - alf (current) use of antimetabolite agent Medications: Refilled folic acid 1 mg PO DAILY 90 tabs 3RF Humira(CF) Pen (adalimumab) inject one - 40 mg/0.4 mL pen every 2 weeks subcut 2 ea 5RF NS methotrexate sodium 15 mg (6 x 2.5 mg) PO QWEEK 72 tabs 3RF Coding Level of Care Code Est Pt Level 4 (56939) Complex EM visit Add On G2211 Diagnoses Psoriatic arthritis L40.50 Psoriasis 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
== END 2024-09-11 16:09 | disposition home or self-care (01) ==
PROVIDERS: PCP Nurse Practitioner Family; Visit Provider Student in an Organized Health Care Education/Training Program
DX: L40.50 Arthropathic psoriasis, unspecified (principal); L40.9 Psoriasis, unspecified; Z79.631 Long term (current) use of antimetabolite agent
CPT/HCPCS: 99214

== ENCOUNTER 2025-03-17 15:28 | Outpatient (AMB) | payer BC, SELFPAY ==
[2025-03-17 15:44] VITALS: BP 118/76; PULSE 65; O2SAT 97; BMI 32.5
--- NOTE | 2025-03-17 15:44 | A.OFFVIS_ITS ---
Vital Signs 03/17/25 15:44 Height 5 ft 10 in Weight 226 lb 3.108 oz BMI 32.5 BP 118/76 Blood Pressure Location Lt brachial Position Sitting Pulse 65 Pulse Source Pulse Oximeter Pulse Oximetry (%) 97 Oxygen Delivery Method Room Air Intake Visit Reasons: PsA Intake Note: Patient presents for follow up on PSA today, his insurance will not be covering Humira anymore. Allergies latex Adverse Reaction (Unknown, Verified 03/17/25 15:47) Rash Medication List - Last Reconciled 03/17/25 by Tatum Ruth MD folic acid 1 mg PO DAILY Humira(CF) Pen (adalimumab) inject one - 40 mg/0.4 mL pen every 2 weeks subcut NS methotrexate sodium 15 mg (6 x 2.5 mg) PO QWEEK simvastatin 20 mg PO BEDTIME HPI Comments Details: Patient is a 44-year-old male with hyperlipidemia, psoriasis and psoriatic arthritis here today for follow up Interval History: Patient last seen 09/11/[address] Jacobo - Doing well overall - Some sublte PSO patches but not too much Today, - Continues to do well - Few PsO patches - Got letter from insurance stating that they will no longer be covering Humira Rheumatologic History: PsO/PsA dx 2001 MTX,SSZ, multiple doses and regimens of NSAIDs which were partially effective. Then patient wanted to have children. Everything was DC & he was switched to Enbrel Enbrel since 2003 effective. cut back to every other since 2021 due to insurance issues, with resultant inflammatory arthritis flare MTX added in 2021 with better control of inflammatory arthritis. Enbrel restarted once weekly in 11/23 DC 01/2024 d.t. ongoing psoriasis Humira 01/2024 effective for psoriatic arthritis, similar for psoriasis Initial history: This is a 42-year-old male with a past medical history of psoriasis and psoriatic arthritis who presents as a new patient. His previous procedural nurse left the practice. Patient stated that he was diagnosed with psoriasis since he was a kid. He was diagnosed with psoriatic arthritis in 2001. He was on multiple medicines including methotrexate, sulfasalazine, multiple doses and regimens of NSAIDs. Then he was planning on having children and he was switched to Enbrel in 2003. Per patient Enbrel was working very well for many years for his psoriasis and psoriatic arthritis until 2021 when his insurance was unable to cover his Enbrel anymore. Patient stalked of on Enbrel in 2021 and was using it every other week. When using it every other week he started developing worsening inflammatory arthritis and he was started on methotrexate 50 mg once weekly by Dr. Roche with improvement of his joint inflammation. Patient now has a new insurance and is using the patient assistance program. Enbrel was authorized by his master barber and he just started taking it once weekly 2 weeks ago. States that he is doing well overall except for mild pain of his left index flexor and left little toe. Minimal psoriatic patches on his fingers. Denies history of uveitis. Never had colonoscopy. No known family history of autoimmune rheumatic disease. Current Rheumatology Medication(s): Methotrexate 15 mg weekly Folic acid 1 mg daily Humira 40 mg every 2 weeks SC [facility] Medical History Psoriatic arthritis Primary fibromyalgia syndrome Inflammatory spondylopathy Psoriasis Hypertriglyceridemia Essential hypertension Surgical History Hx of LASIK Family History Mother Hypertension Father Hypertension Neurological disorder Social History Alcohol intake: current Alcohol intake frequency: holidays/special occasions only Alcohol type: beer Patient Tobacco Use Status: Never used Tobacco Current occupational status: employed Current occupation: [employer] Review of Systems Const Details: Review of Systems Constitutional: Denies fever, chills, weight loss ENT: Denies vision changes, eye pain or eye redness, dental caries, dry mouth GI: Denies nausea, vomiting, diarrhea, abdominal pain, change in BM Pulm: Denies SOB, SOSA, hemoptysis, wheezing Cards: Denies chest pain, palpitations Skin: Denies Raynaud's, rash, nail changes, photosensitivity, [employer]IST[employer]: Denies headaches, weakness, paresthesias, recurrent falls MSK: as per HPI All other systems reviewed and are unremarkable except noted above Physical Exam Vital Signs: Last Vital Signs Pulse 65 03/17/25 15:44 BP 118/76 03/17/25 15:44 Pulse Ox 97 03/17/25 15:44 Oxygen Delivery Method Room Air 03/17/25 15:44 BMI result Body Mass Index 32.5 Vital signs reviewed Physical Examination CONSTITUITIONAL Patient alert and cooperative. Well appearing and in no apparent painful distress HEENT Conjunctiva and sclera clear. No lymphadenopathy. MSK Hands * Right Hand: Able to make a fist. No swelling or tenderness to palpation of these joints. No deformities noted. * Left Hand: Able to make a fist. No swelling or tenderness to palpation of these joints. No deformities noted. * Hands slightly puffy Wrists * Right Wrist: Full ROM. 70 degrees of wrist flexion, 80 degrees of wrist extension. No swelling or TTP * Left Wrist: Full ROM. 70 degrees of wrist flexion, 80 degrees of wrist extension. No swelling or TTP Elbows * Right Elbow: Full ROM. No swelling or TTP. No TTP of the medial and lateral epicondyles * Left Elbow: Full ROM. No swelling or TTP. No TTP of the medial and lateral epicondyles Shoulders * Right shoulder: Full ROM. No swelling noted. No TTP of the AC joint, subacromial bursa or posterior shoulder * Left shoulder: Full ROM. No swelling noted. No TTP of the AC joint, subacromial bursa or posterior shoulder Knees * Right knee: Full ROM. No swelling noted. No TTP of the knee joint lie or pes anserine bursa * Left knee: Full ROM. No swelling noted. No TTP of the knee joint lie or pes anserine bursa. Ankles * Right ankle: Good ankle dorsiflexion and plantar flexion. No swelling. No TTP of the ankle joint * Left ankle: Good ankle dorsiflexion and plantar flexion. No swelling. No TTP of the ankle joint Feet * Right foot: Negative squeeze test * Left foot: Negative squeeze test Tender points? * No tenderness to palpation of the bilateral trapezius, supraspinatus, anterior costochondral junctions, bilateral suboccipital muscle insertions SKIN PsO patches noted over the right knee, hands Results Reviewed Results Reviewed: Laboratory Tests 09/11/24 03/13/25 15:10 [facility] WBC 6.8 7.4 RBC 5.03 Hgb 15.2 15.6 Hct 43.4 Plt Count 223 258 ESR 7 22 Sodium 142 Potassium 4.2 Chloride 108 Carbon Dioxide 28 BUN 16 Creatinine 0.85 AST 26 25 ALT 39 34 C-Reactive Protein 0.33 2 Assessment & Plan Assessment & Plan (1) Psoriatic arthritis: Comment: dx 2001 MTX,SSZ, multiple doses and regimens of NSAIDs which were partially effective. Then patient wanted to have children. Everything was DC & he was switched to Enbrel Enbrel since 2003 effective. cut back to every other since 2021 due to insurance issues, with resultant inflammatory arthritis flare MTX added in 2021 with better control of inflammatory arthritis. Enbrel restarted once weekly in 11/23 DC 01/2024 d.t. ongoing psoriasis Humira 01/2024 effective for psoriatic arthritis, similar for psoriasis Code(s): L40.50 - Arthropathic psoriasis, unspecified Category: Medical Plan: #PsA Patient is a 44 y.o. male with PsO/PsA here today for follow up Currently in remission Will change Humira to bio similar based on insurance preference Will try to taper methotrexate in the future Plan - Stop Humira - Adalimumab - adaz 40mg SC every 2 weeks - Mtx 15mg weekly - Folic acid 1 mg - RTC 4 months - Labs before visit: CBC, CMP, ESR, CRP, Hepatitis panel and T spot (2) Encounter for monitoring of adalimumab therapy: Code(s): Z51.81 - Encounter for therapeutic drug level monitoring; Z79.620 - custodial (current) use of immunosuppressive biologic Plan: #Long-term Use of TNF Inhibitors: Adalimumab - adaz Discussed with the patient the benefits and risks of TNF inhibitors for the management of the rheumatic condition Benefits include reduce pain, maintenance of remission and reduction of flares as well as progression of the disease Risks include injection sites/infusion reactions, serious infections (such as bacterial infections, opportunistic infections), malignancy, delaminating syndromes, autoimmune phenomena, CHF exacerbations, palmar plantar psoriasis and cytopenias Recommended rotating injection sites, and holding medication during and for up to 1 week after resolution of a febrile illness or open skin wound (3) Encounter for methotrexate monitoring: Code(s): Z51.81 - Encounter for therapeutic drug level monitoring; Z79.631 - custodial (current) use of antimetabolite agent Plan: #Long-term Current Use of Methotrexate Discussed with patient the benefits and risks of methotrexate for managing their rheumatic condition Benefits include reduced pain, reduced mortality, maintenance of remission and reduction of flares Risks include oral ulcers, photosensitivity, hepatotoxicity, hematologic toxicity, pneumonitis, flu-like symptoms (especially day after administration), nodulosis, lymphomas ? Limit alcohol and avoid Bactrim ? Monitoring: CBC, BMP, LFTs every 3-4 months and hepatitis serologies as needed Plan I spent 32 minutes reviewing the record and labs, taking a history, examining the patient, discussing the treatment plan, ordering diagnostic work up and documenting in the medical record Orders: Orders Comprehensive Met. Panel 4 Months L40.50 - Arthropathic psoriasis, unspecified Erythrocyte Sedimentation Rate 4 Months L40.50 - Arthropathic psoriasis, unspecified Complete Blood Count Auto Diff 4 Months L40.50 - Arthropathic psoriasis, unspecified C Reactive Protein 4 Months L40.50 - Arthropathic psoriasis, unspecified Hepatitis A,B,C Profile 4 Months L40.50 - Arthropathic psoriasis, unspecified T Spot TB 4 Months L40.50 - Arthropathic psoriasis, unspecified Medications: New adalimumab-adaz 40 mg (0.4 mL) subcut Q2W 0.8 mL 5RF L40.50 - Arthropathic psoriasis, unspecified Refilled methotrexate sodium 15 mg (6 x 2.5 mg) PO QWEEK 72 tabs 3RF folic acid 1 mg PO DAILY 90 tabs 3RF Discontinued Humira(CF) Pen (adalimumab) Discontinued Reason: Doctor's Order inject one - 40 mg/0.4 mL pen every 2 weeks subcut 2 ea 5RF NS Coding Level of Care Code Est Pt Level 4 (65962) Complex EM visit Add On G2211 Diagnoses Psoriatic arthritis L40.50 Encounter for monitoring of adalimumab therapy Z51.81; Z79.620 Encounter for methotrexate monitoring Z51.81; Z79.631
== END 2025-03-17 16:28 | disposition home or self-care (01) ==
LOC: HO.RHE 15:28
PROVIDERS: PCP Nurse Practitioner Family; Visit Provider Student in an Organized Health Care Education/Training Program
DX: L40.50 Arthropathic psoriasis, unspecified (principal); Z51.81 Encounter for therapeutic drug level monitoring; Z79.620 Long term (current) use of immunosuppressive biologic; Z79.631 Long term (current) use of antimetabolite agent
CPT/HCPCS: 99214